=== PATIENT | male | born 1990 | race Asian ===

== ENCOUNTER 2020-04-13 12:37 | Emergency (ER) | payer BC ==
[~2020-04-13] VITALS: Ht 182.9 cm; Wt 125.3 kg
[2020-04-13 14:11] LABS: BASOPHILS % (AUTO) 1 % (0-1); EOSINOPHILS % (AUTO) 3 % (1-7); LYMPHOCYTES % (AUTO) 20 % (22-44); MEAN CORPUSCULAR HGB CONC 33.8 g/dL (33.2-36.2); MEAN PLATELET VOLUME 8.1 fL (7.4-10.4); MONOCYTES % (AUTO) 7 % (2-9); NEUTROPHILS % (AUTO) 68 % (42-75); PLATELET COUNT 403 x10^3/uL (130-400); RED BLOOD COUNT 5.28 x10^6/uL (4.38-5.82); RED CELL DISTRIBUTION WIDTH 13.3 % (9.4-14.8)
[2020-04-13 14:21] LABS: CHLORIDE 105 mmol/L (98-107)
[2020-04-13 14:28] LABS: ALANINE AMINOTRANSFERASE 184 U/L (12-78); ALBUMIN 4.1 g/dL (3.4-5.0); ALKALINE PHOSPHATASE 108 U/L (45-117); ANION GAP 4 mmol/L (5-15); BILIRUBIN,TOTAL 0.4 mg/dL (0.2-1.0); CALCIUM 9.7 mg/dL (8.5-10.1); CREATININE 0.92 mg/dL (0.7-1.3); TOTAL PROTEIN 8.4 g/dL (6.4-8.2)
[2020-04-13 14:39] LABS: MD SCAN
--- NOTE | 2020-04-13 16:04 | NUR ---
PT SITTING UPRIGHT ON GURNEY WATCHING TV. NAD, VSS. PT DENIES ANY NEEDS AT THIS TIME. CALL LIGHT WITHIN REACH. ISOLATION PRECAUTIONS IN PLACE.
[2020-04-13 16:21] VITALS: BP 148/87
== END 2020-04-13 16:34 | disposition home or self-care (01) ==
LOC: ED 14:41
DX: U07.1 COVID-19 (principal); J40 Bronchitis, not specified as acute or chronic; R00.0 Tachycardia, unspecified; I25.2 Old myocardial infarction
CPT/HCPCS: 36415; 71045; 80053; 85025; 93005; 99285